=== PATIENT | female | born 1965 | race Caucasian/White ===

== ENCOUNTER 2017-05-21 10:44 | Emergency (ER) | payer SELFPAY ==
[~2017-05-21] VITALS: Ht 167.6 cm; Wt 109.7 kg
[~2017-05-21 10:44] MED LIST: IBUP800T23 PO; PRED20 PO; PROM25SU8 PO; TYLE3 PO; ZOFR4TAB3 SL
[2017-05-21 10:46] VITALS: BP 222/127; PULSE 101; RESP 18; TEMP 98.2; O2SAT 97
[2017-05-21] MEDS ORDERED: PRED20 PO (11:48)
[2017-05-21] MEDS ORDERED: BENZ100 PO (11:48)
[2017-05-21] MEDS ORDERED: AZIT250T3 PO (11:48)
--- NOTE | 2017-05-21 11:48 | PD ---
HPI Chief Complaint: Cold / Flu Symptoms Time Seen by Provider: 11:22 Travel History International Travel<30 days: No Contact w/Intl Traveler<30days: No Traveled to known affect area: No History of Present Illness HPI 52 -year-old female here with productive cough and wheezing 3 days. Patient reports she had URI-like symptoms and being in the month which have progressed to a wet productive cough. She reports subjective fevers. Symptoms are slightly improved with [id number] cough medicine. Nose nares moderate. PFSH Past Medical History Medical History: Denies Significant Hx Hx Anticoagulant Therapy: No Cardiovascular Problems: No Chemotherapy: No Cerebrovascular Accident: No Diabetes: No Diminished Hearing: No Respiratory: No Immunizations Current: Yes ?: Not : 4 Para: 3 : 1 Tubal Ligation: Yes Past Surgical History Abdominal Surgery: Yes (SPLEENECTONY 1967, ABD HERNIA REPAIR IN THE INTESTINES STATED) Appendectomy: Yes Body Medical Devices: ALLERGIES Hysterectomy: No Oral Surgery: Yes (LUMP REMOVED FROM SALLIVARY GLAND NOT MALIGNANT 1999) Tonsillectomy: Yes (AND ADNOIDS) Social History Alcohol Use: No Tobacco Use: No (1/2 PACK PER DAY FOR 20 YEARS- QUIT ) Substance Use: No Allergies-Medications (Allergen,Severity, Reaction): Coded Allergies: morphine (Unverified Allergy, Severe, Hives, 02/11/17) Reported Meds & Prescriptions Reported Meds & Active Scripts Active Review of Systems Except as stated in HPI: all other systems reviewed are Neg Physical Exam Narrative GENERAL: Well-nourished, well-developed patient. SKIN: Focused skin assessment warm/dry. HEAD: Normocephalic. EYES: No scleral icterus. No injection or drainage. NECK: Supple, trachea midline. No JVD or lymphadenopathy. CARDIOVASCULAR: Regular rate and rhythm without murmurs, gallops, or rubs. RESPIRATORY: Harsh sounding cough with rhonchi .Breath sounds equal bilaterally. No accessory muscle use. GASTROINTESTINAL: Abdomen soft, non-tender, nondistended. MUSCULOSKELETAL: No cyanosis, or edema. BACK: Nontender without obvious deformity. No CVA tenderness. Data Data Last Documented VS Vital Signs Date Time Temp Pulse Resp B/P (MAP) Pulse Ox O2 Delivery O2 Flow Rate FiO2 05/21/17 10:46 98.2 101 18 222/127 (158) 97 MDM Medical Decision Making Medical Screen Exam Complete: Yes Emergency Medical Condition: Yes Differential Diagnosis Bronchitis, pneumonia, influenza Narrative Course 52-year-old female here with productive cough and reported wheezing 3 days. Patient reports she has had URI-like symptoms since the beginning of this month. Nontoxic appearing. She is afebrile. She has a harsh sounding cough with rhonchi on exam. She will be treated for bronchitis Diagnosis Primary Impression: Bronchitis Referrals: [facility] Additional Instructions: Take the medications as prescribed. Rest and stay well hydrated. Return if he developed new or worsening symptoms Scripts Benzonatate (Tessalon Perles) 100 Mg Cap 100 MG PO TID Y for COUGH for 14 Days, CAP 0 Refills Prov: Kiana Masterson 05/21/17 Prednisone (Prednisone) 20 Mg Tab 40 MG PO DAILY, #10 TAB 0 Refills Take 40 mg (2 tablets) daily for 5 days Prov: Kiana Masterson 05/21/17 Azithromycin (Azithromycin) 250 Mg Tab 250 MG PO DIRECTED for Infection, #6 TAB 0 Refills Take 2 tabs (500 mg) on day 1 then 1 tab daily x 4 days. Prov: iKana Masterson 05/21/17 Disposition: 01 DISCHARGE HOME Condition: Stable Kiana Masterson May 21, 2017 11:48
== END 2017-05-21 12:00 | disposition home or self-care (01) ==
LOC: PHED 10:44
DX: J40 Bronchitis, not specified as acute or chronic (principal); Z88.5 Allergy status to narcotic agent
CPT/HCPCS: 99284